=== PATIENT | male | born 1970 | race Caucasian/White ===

== ENCOUNTER 2017-03-08 17:45 | Emergency (ER) | payer OTHER ==
[~2017-03-08] VITALS: Ht 177.8 cm; Wt 81.1 kg
[~2017-03-08 17:45] MED LIST: OXYC-302 PO
[2017-03-08 17:46] VITALS: BP 125/81
[2017-03-08] MEDS ORDERED: LIDOCAINE 1%, 20ML ONE (18:38)
== END 2017-03-08 20:02 | disposition home or self-care (01) ==
LOC: ED 18:44
DX: S39.012A Strain of muscle, fascia and tendon of lower back, initial encounter (principal); X50.9XXA Other and unspecified overexertion or strenuous movements or postures, initial encounter; Y93.B9 Activity, other involving muscle strengthening exercises; Y99.8 Other external cause status; Y92.89 Other specified places as the place of occurrence of the external cause
CPT/HCPCS: 72110; 99284